=== PATIENT | male | born 1950 | race American Indian/Alaskan Native ===

== ENCOUNTER 2020-12-16 07:34 | Emergency (ER) | payer MEDICARE, OTHER ==
[2020-12-16 07:39] VITALS: BP 156/87
[2020-12-16] MEDS ORDERED: ACETAMINOPHEN 325 MG TAB PO ONE (09:00)
[2020-12-16] MEDS ORDERED: TETANUS,DIPH,PERTUSS(ACELL) VACCINE 0.5 ML SYRINGE IM ONE (09:00)
[2020-12-16] MEDS ORDERED: LIDOCAINE (1%) 10 MG/1 ML VIAL 20 ML MDV INFILTRATI ONE (09:00)
--- NOTE | 2020-12-16 09:01 | Emergency Department Report ---
- General Chief Complaint: Wound/Laceration Stated Complaint: NOSE BLEED Time Seen by Provider: 12/16/20 08:42 Source: patient Mode of arrival: Ambulatory Limitations: No Limitations - History of Present Illness Initial Comments: 70-year-old male presents to the ER today with complaints of a laceration to his nose. Patient states that he was getting out of his truck this morning when the corner of the door of his truck excellently struck him on his nose. Patient reports laceration to the right side of his nostril which has been bleeding since the injury. He reports pain to the tip of his nose, and also to his right cheek. He states that he is concerned that his nose is broken. He denies any loss of consciousness. He is not any blood thinners. He denies any dental in jury or pain. He denies any neck pain. He is not up-to-date on his tetanus. He reports no additional symptoms at this time. -: Sudden - Related Data Home Medications Medication Instructions Recorded Confirmed Last Taken Simvastatin 1 tab PO DAILY 11/30/13 12/29/13 12/28/13 1 tab Allergies Allergy/AdvReac Type Severity Reaction Status Date / Time Penicillins Allergy Unknown Unknown Verified 12/16/20 07:39 amitriptyline Allergy Unknown Verified 12/16/20 07:40 ED Review of Systems ROS: Stated complaint: NOSE BLEED Other details as noted in HPI Comment: All other systems reviewed and negative Constitutional: denies: chills, fever Eyes: denies: eye pain, eye discharge, vision change ENT: other (Nose laceration/pain/facial pain). denies: ear pain, throat pain, dental pain, hearing loss, epistaxis, congestion Respiratory: denies: cough, shortness of breath, wheezing Cardiovascular: denies: chest pain, palpitations Endocrine: no symptoms reported Gastrointestinal: denies: abdominal pain, nausea, diarrhea Genitourinary: denies: urgency, dysuria, frequency, hematuria, discharge, testicular pain, testicular mass Musculoskeletal: denies: back pain, joint swelling, arthralgia Skin: denies: rash, lesions Neurological: denies: headache, weakness, numbness, paresthesias, confusion, abnormal gait, vertigo Psychiatric: denies: anxiety, depression, auditory hallucinations, visual hallucinations, homicidal thoughts, suicidal thoughts Hematological/Lymphatic: denies: easy bleeding, easy bruising, swollen glands ED Past Medical Hx - Past Medical History Hx Hypertension: No Hx Heart Attack/AMI: (STRESS TEST NEGATIVE) Hx Congestive Heart Failure: No Hx Diabetes: No Hx Renal Disease: No Hx Sickle Cell Disease: No Hx Asthma: No Hx COPD: No Hx Tuberculosis: No Hx HIV: No - Surgical History Hx Coronary Stent: No - Social History Smoking Status: Former Smoker - Medications Home Medications: Home Medications Medication Instructions Recorded Confirmed Last Taken Type Simvastatin 1 tab PO DAILY 11/30/13 12/29/13 12/28/13 History 1 tab ED Physical Exam - General Limitations: No Limitations General appearance: alert, in no apparent distress - Head Head exam: Present: atraumatic, normocephalic, normal inspection - Eye Eye exam: Present: normal appearance, PERRL, EOMI Pupils: Present: normal accommodation - ENT ENT exam: Present: other (Laceration noted right nasal alar, does not appear to be through and through laceration; no active bleeding noted at this time. No nasal deformity or septal hematoma noted. There is tenderness to palpation to the tip and bridge of the nose. Mild tenderness palpation to right cheek.) - Expanded ENT Exam Expanded Mouth exam: Present: normal external inspection Teeth exam: Present: other (No apparent dental injury, no malocclusion, no jaw tenderness or deformity.) Throat exam: Positive: normal inspection - Neck Neck exam: Present: normal inspection, full ROM. Absent: meningismus - Respiratory Respiratory exam: Present: normal lung sounds bilaterally. Absent: respiratory distress, wheezes, rales, rhonchi, stridor - Cardiovascular Cardiovascular Exam: Present: regular rate, normal rhythm, normal heart sounds - Neurological Exam Neurological exam: Present: alert, oriented X3, CN II-XII intact, normal gait - Psychiatric Psychiatric exam: Present: normal affect, normal mood - Skin Skin exam: Present: intact ED Course Vital Signs 12/16/20 07:36 Temperature 97.7 F Pulse Rate 82 Respiratory 16 Rate Blood Pressure 156/87 [Left] O2 Sat by Pulse 98 Oximetry - Laceration /Wound Repair Right Face Wound Location: face (right nasal alar) Wound Length (cm): 3 Wound's Depth, Shape: superficial Wound Explored: clean Betadine Prep?: Yes Anesthesia: 1% Lidocaine Volume Anesthetic (ccs): 2 Wound Repaired With: sutures Suture Size/Type: 5:0 Number of Sutures: 6 Layer Closure?: No Sterile Dressing Applied?: Yes Progress: Patient tolerated procedure well without any complications ED Medical Decision Making - Radiology Data Radiology results: report reviewed Patient: HAO CASIANO MR#: [id number] : 1950 Acct:[id number] Age/Sex: 70 / M ADM Date: 12/16/20 Loc: ED Attending Dr: Ordering Physician: KEKE LAMB Date of Service: 12/16/20 Procedure(s): CT facial bones wo con Accession Number(s): [id number] cc: KEKE LAMB CT FACIAL BONES WITHOUT CONTRAST INDICATION : nose lac/struck it on door. TECHNIQUE: Axial imaging performed through the face with reconstructed images also reviewed. Sagittal and coronal reformatted images. All CT scans at this location are performed using CT dose reduction for ALARA by means of automated exposure control. COMPARISON: None FINDINGS: The facial bones, orbital cavities, paranasal sinuses, mastoid air cells, skull base and visualized upper cervical spine are intact and without acute abnormality. Facial soft tissues are unremarkable. Poor dentition is noted. IMPRESSION: No acute abnormality identified. Signer Name: Erik Bear Jr, MD Signed: 12/16/2020 10:18 AM Workstation Name: [id number] Transcribed By: TTR Dictated By: ERIK BEAR JR, MD Electronically Authenticated By: ERIK BEAR JR, MD Signed Date/Time: 12/16/20 1018 DD/ 1016 - Medical Decision Making 1148: CT face shows nothing acute. Laceration to the right aspect of patient's nose was repaired by me. See procedure note for detail. Patient currently resting comfortably. He is not in any acute distress. He is awake alert and oriented x3 with a GCS of 15. He is neurologically intact with a normal gait. No additional testing or imaging indicated at this time. Discussed wound care with patient. Patient expressed understanding of all instructions and agree with plan. Patient was stable at time of discharge. Critical care attestation.: If time is entered above; I have spent that time in minutes in the direct care of this critically ill patient, excluding procedure time. ED Disposition Clinical Impression: Nasal laceration, Contusion of nose Disposition: 01 HOME / SELF CARE / HOMELESS Is pt being admited?: No Does the pt Need Aspirin: No Condition: Stable Instructions: Facial or Scalp Contusion, Laceration Care, Adult, [id number] Additional Instructions: Keep the area clean daily with soap and water. Do not use alcohol or peroxide. After each clean dry well and apply thin layer of Neosporin. You can take Tylenol and/or ibuprofen as needed for pain. Sutures will need to be removed in about 5 to 7 days. You can return here or follow-up with your primary care doctor for suture removal. Return to the ER if anything changes or worsens in any way. Referrals: RED KUNZ MD [Primary Care Provider] - 3-5 Days Time of Disposition: 11:47
--- NOTE | 2020-12-16 10:22 | Cat Scan Report ---
CT FACIAL BONES WITHOUT CONTRAST INDICATION : nose lac/struck it on door. TECHNIQUE: Axial imaging performed through the face with reconstructed images also reviewed. Sagitta l and coronal reformatted images. All CT scans at this location are performed using CT dose reduction for ALARA by means of automated exposure control. COMPARISON: None FINDINGS: The facial bones, orbital cavities, paranasal sinuses, mastoid air cells, skull base and v isualized upper cervical spine are intact and without acute abnormality. Facial soft tissues are unre markable. Poor dentition is noted. IMPRESSION: No acute abnormality identified. Signer Name: Erik Bear Jr, MD Signed: 12/16/2020 10:18 AM Workstation Name: [id number]
[2020-12-16] MEDS ORDERED: NEOMY 3.5 MG/BACIT 400 UNITS/POLY B 5000 UNITS/GM OINT PACKET TP ONE (11:47)
== END 2020-12-16 12:05 | disposition home or self-care (01) ==
LOC: ED 07:34
DX: S01.21XA Laceration without foreign body of nose, initial encounter (principal); Z87.891 Personal history of nicotine dependence; Z88.0 Allergy status to penicillin; Z88.8 Allergy status to other drugs, medicaments and biological substances; W22.8XXA Striking against or struck by other objects, initial encounter; Y93.89 Activity, other specified; Y92.89 Other specified places as the place of occurrence of the external cause; Y99.8 Other external cause status
CPT/HCPCS: 12013; 70486; 90471; 90715; 99283; A6250